=== PATIENT | female | born 1945 | race Two or more races ===

== ENCOUNTER 2018-01-23 18:56 | Inpatient (IN) | payer MEDICARE, MEDICAID ==
[~2018-01-23] VITALS: Ht 157.5 cm; Wt 75.3 kg
--- NOTE | 2018-01-23 19:46 | NUR ---
Pt provided urine, sent to lab.
[2018-01-23 19:49] LABS: BASOPHILS # (AUTO) 0.1 K/uL (0.0-8.0); BASOPHILS % (AUTO) 0.5 % (0.0-2.0); EOSINOPHILS # (AUTO) 0.2 K/uL (0.0-0.7); HEMATOCRIT 37.4 % (31.2-41.9); HEMOGLOBIN 12.5 g/dL (10.9-14.3); LYMPHOCYTES # (AUTO) 1.5 K/uL (20.0-40.0); LYMPHOCYTES % (AUTO) 13.3 % (20.5-51.5); MEAN CORPUSCULAR HEMOGLOBIN 30.3 uug (24.7-32.8); MEAN CORPUSCULAR HGB CONC 34 g/dL (32.3-35.6); MEAN CORPUSCULAR VOLUME 90.4 fL (75.5-95.3); MONOCYTES # (AUTO) 0.8 K/uL (2.0-10.0); MONOCYTES % (AUTO) 7.4 % (0.0-11.0); NEUTROPHILS # (AUTO) 8.6 K/uL (1.8-8.9); NEUTROPHILS % (AUTO) 76.8 % (38.5-71.5); PLATELET COUNT (AUTO) 293 K/uL (179-408); RED BLOOD CELL COUNT(AUTO) 4.14 MIL/uL (3.63-4.92); WHITE BLOOD COUNT (AUTO) 11.1 K/uL (3.8-11.8)
[2018-01-23 19:51] LABS: *BILIRUBIN,URIN NEGATIVE (NEGATIVE); *BLOOD, URINE Trace-intact (NEGATIVE); *CLARITY,URINE CLEAR (CLEAR); *COLOR,URINE YELLOW (YELLOW); *KETONES,URINE NEGATIVE (NEGATIVE); *PROTEIN,URINE NEGATIVE (NEGATIVE); *UROBILINOGEN,URINE 0.2 E.U./dl (NORMAL); LEUKOCYTE ESTERASE ,URINE TRACE (NEGATIVE); NITRITE, URINE NEGATIVE (NEGATIVE); PH,URINE 5.5 (5.0-8.0); UGLUCOSE NEGATIVE (NEGATIVE)
[2018-01-23 19:59] LABS: CREATININE 0.9 mg/dL (0.6-1.3); POTASSIUM 3.2 mmol/L (3.5-5.1)
[2018-01-23 20:07] LABS: BACTERIA,URINE NONE SEEN /HPF (NONE SEEN); RBC,URINE 0-3 /HPF (0-3); SQUAMOUS EPITHELIAL CELL,UR FEW /HPF (NONE SEEN); WBC,URINE 0-3 /HPF (0-3)
[2018-01-23 20:12] LABS: BILIRUBIN,DIRECT 0.1 mg/dL (0.0-0.2); BILIRUBIN,TOTAL 0.3 mg/dL (0.2-1.0); TOTAL PROTEIN, SERUM 7.8 g/dL (6.4-8.2)
--- NOTE | 2018-01-23 20:19 | NUR ---
Pt went down to radiology dept for CT scan. VSS.
[2018-01-23] MEDS ORDERED: SIMV20TA6 PO (20:54)
[2018-01-23] MEDS ORDERED: AMLO2.5T2 PO (20:54)
[2018-01-23] MEDS ORDERED: LEVO88TA5 PO (20:54)
[2018-01-23] MEDS ORDERED: METF500T6 PO (20:54)
[2018-01-23] MEDS ORDERED: ASPI81TA31 PO (20:54)
[2018-01-23] MEDS ORDERED: CARV3.122 PO (20:54)
[2018-01-23] MEDS ORDERED: OLME1TAB19 PO (20:54)
[2018-01-23] MEDS ORDERED: OMEP20TA5 PO (20:54)
--- NOTE | 2018-01-23 21:06 | NUR ---
Pt. admitted to Telemetry , under care of Dr. Faisal Horne. Diagnosis: Dehydration & Weakness. Belongs List completed. Report given to Nicci URIBE.
[2018-01-23 21:30] VITALS: BP 124/70
--- NOTE | 2018-01-23 21:30 | NUR ---
RECEIVED PATIENT VIA W/C FROM ER. PATIENT IS A/O X4. PATIENT PLACED ON TELE ORDERED, SR. PATIENT C/O CHEST PAIN ON LEFT SIDE OF CHEST. DR. ENG NOTIFIED. PT. PLACED ON TELE SR. VSS. NO RESP. DISTRESS NOTED. ORIENTED PATIENT TO ROOM AND CALL LIGHT. H/L INTACT AND PATENT, #20 GAUGE NOTED TO RIGHT FA. CALL LIGHT IN REACH. ALL NEEDS ATTENDED. WILL CONTINUE TO MONITOR.
[2018-01-23] MEDS ORDERED: MAGNESIUM HYDROXIDE 30 ML LIQUID UDC PO PRN (21:45)
[2018-01-23] MEDS ORDERED: NITROGLYCERIN 0.4 MG/TAB BOTTLE SL PRN (21:45)
[2018-01-23] MEDS ORDERED: TEMAZEPAM 15 MG CAPSULE PO PRN (21:45)
[2018-01-23] MEDS ORDERED: ONDANSETRON 4 MG/2 ML VIAL IV PRN (21:45)
[2018-01-23] MEDS ORDERED: ENALAPRILAT DIHYDRATE INJ 2.5 MG in IV NORMAL SALINE 50 ML IV PRN (21:45)
[2018-01-23] MEDS ORDERED: ACETAMINOPHEN 325 MG TABLET PO PRN (21:45)
[2018-01-23] MEDS ORDERED: POTASSIUM CHLORIDE 20 MEQ TAB.PRT.SR PO ONE ×2 (22:00→22:30)
[2018-01-23] MEDS ORDERED: ASPIRIN EC 81 MG TABLET.DR PO ONE (22:00)
--- NOTE | 2018-01-23 22:30 | NUR ---
PATIENT GIVEN TYLENOL 650MG PO PRN FOR MILD PAIN. PATIENT STILL C/O MILD CHEST PAIN, BUT DENIES NITRO-SL. ON TELE SR. WILL CONTINUE TO MONITOR AND ASSESS.
[2018-01-23 23:49] VITALS: BP 114/65
[2018-01-23] MEDS ORDERED: TEMAZEPAM 7.5 MG CAPSULE PO PRN (23:52)
[2018-01-24 04:00] VITALS: BP 99/60
--- NOTE | 2018-01-24 06:45 | NUR ---
PATIENT AWAKE IN BED. DENIES ANY CHEST PAIN. SLEPT WELL. ON TELE SR. PATIENTS HEART RATE DROPPED DURING THE NIGHT TO THE LOW 40'S, NON-SUSTAINED. VS WNL. CALL LIGHT IN REACH. ALL NEEDS ATTENDED.
[2018-01-24 07:24] LABS: BASOPHILS # (AUTO) 0.1 K/uL (0.0-8.0); BASOPHILS % (AUTO) 0.8 % (0.0-2.0); EOSINOPHILS # (AUTO) 0.2 K/uL (0.0-0.7); EOSINOPHILS % (AUTO) 3.2 % (0.0-7.0); HEMATOCRIT 36.4 % (31.2-41.9); HEMOGLOBIN 12.4 g/dL (10.9-14.3); LYMPHOCYTES # (AUTO) 1.3 K/uL (20.0-40.0); LYMPHOCYTES % (AUTO) 19.5 % (20.5-51.5); MEAN CORPUSCULAR HEMOGLOBIN 30.9 uug (24.7-32.8); MEAN CORPUSCULAR HGB CONC 34 g/dL (32.3-35.6); MEAN CORPUSCULAR VOLUME 90.7 fL (75.5-95.3); MONOCYTES # (AUTO) 0.5 K/uL (2.0-10.0); NEUTROPHILS # (AUTO) 4.6 K/uL (1.8-8.9); NEUTROPHILS % (AUTO) 68.5 % (38.5-71.5); PLATELET COUNT (AUTO) 273 K/uL (179-408); RED BLOOD CELL COUNT(AUTO) 4.01 MIL/uL (3.63-4.92); WHITE BLOOD COUNT (AUTO) 6.7 K/uL (3.8-11.8)
--- NOTE | 2018-01-24 07:25 | NUR ---
Received pt alert and oriented times 4. Able to verbalize needs. Pt states no pain, no chest pain at this time. No immediate s/s of SOB, distress or discomfort noted
[2018-01-24] MEDS ORDERED: LEVOTHYROXINE SODIUM 88 MCG TABLET PO SCH (07:30)
[2018-01-24] MEDS ORDERED: PANTOPRAZOLE SODIUM 40 MG TABLET.DR PO SCH (07:30)
[2018-01-24 08:08] LABS: CREATININE 0.9 mg/dL (0.6-1.3); MAGNESIUM 1.8 mg/dL (1.8-2.4); PHOSPHOROUS 3.9 mg/dL (2.5-4.9); POTASSIUM 3.6 mmol/L (3.5-5.1)
--- NOTE | 2018-01-24 08:28 | NUR ---
Held carvedilol due to HR being 54
[2018-01-24 08:52] LABS: THYROID STIMULATING HORMONE 3.183 mIU/mL (0.358-3.740)
[2018-01-24] MEDS ORDERED: AMLODIPINE 2.5 MG TABLET PO SCH (09:00)
[2018-01-24] MEDS ORDERED: METFORMIN HCL 500 MG TABLET PO SCH (09:00)
[2018-01-24] MEDS ORDERED: CARVEDILOL 3.125 MG TABLET PO SCH (09:00)
[2018-01-24 12:06] VITALS: BP 141/66
[2018-01-24] MEDS ORDERED: MULT1TAB73 PO (13:45)
--- NOTE | 2018-01-24 14:25 | NUR ---
Pt was discharge with orders from Dr. Malone. Pt states no pain at this time. Pt is alert and oriented times 4, able to verbalize needs, ambulatory. Pt was able to sign discharge papers and personal belongings list with all personal belongings accounted for. Pt.'s by bedside. IV line and ID band both removed. Pharmacist called for consultation on medications. VS stable. Pt was able to walk out of the unite with a steady gait.
[2018-01-24] MEDS ORDERED: SIMVASTATIN 20 MG TABLET PO SCH (21:00)
[2018-01-24] MEDS ORDERED: ASPIRIN 81 MG TAB.CHEW PO SCH (21:00)
== END 2018-01-24 14:25 | disposition home or self-care (01) | DRG 866 ==
LOC: ER 18:58 → TELE 21:05
PROVIDERS: ADMIT Internal Medicine; ATTEND Internal Medicine
DX: B34.9 Viral infection, unspecified (principal); R00.1 Bradycardia, unspecified; T46.1X5A Adverse effect of calcium-channel blockers, initial encounter; T44.7X5A Adverse effect of beta-adrenoreceptor antagonists, initial encounter; Y92.89 Other specified places as the place of occurrence of the external cause; E86.0 Dehydration; E11.9 Type 2 diabetes mellitus without complications; E78.5 Hyperlipidemia, unspecified; E03.9 Hypothyroidism, unspecified; E66.9 Obesity, unspecified; Z68.30 Body mass index [BMI] 30.0-30.9, adult; I11.9 Hypertensive heart disease without heart failure; R91.8 Other nonspecific abnormal finding of lung field; Z79.82 Long term (current) use of aspirin; Z98.42 Cataract extraction status, left eye; Z98.41 Cataract extraction status, right eye; I67.2 Cerebral atherosclerosis; Z79.84 Long term (current) use of oral hypoglycemic drugs; Z79.899 Other long term (current) drug therapy
CPT/HCPCS: 36415; 70030-TC; 70450; 71045; 83605; 83735; 84100; 84443; 85025; 85730; 87040; 87086; 93005; 93307; 93880; A4663